=== PATIENT | female | born 1990 | race Caucasian/White ===

== ENCOUNTER 2016-09-20 14:39 | Emergency (ER) | payer OTHER ==
[2016-09-20 15:42] VITALS: BP 112/67
--- NOTE | 2016-09-20 17:15 | RAD ---
INDICATION: Left knee injury. TECHNIQUE: 4 views of the left knee were obtained. FINDINGS: The bones are in normal alignment. No joint effusion or fracture is seen. Joint spaces appear maintained. IMPRESSION: NO EVIDENCE FOR FRACTURE.
--- NOTE | 2016-09-20 18:01 | UC ---
Knee Pain HPI - HPI Summary HPI Summary: Fell on ice, left knee was bent underneath her. [place]anan a pop and cant bear weight on it. mild swelling sub patellar noted - History of Current Complaint Chief Complaint: UCLowerExtremity Stated Complaint: LEFT KNEE PAIN Time Seen by Provider: 09/20/16 16:30 Hx Obtained From: Patient Hx Last Menstrual Period: EXPLANON ?: No Onset/Duration: Sudden Onset, Lasting Hours Severity Initially: Moderate Severity Currently: Moderate Pain Intensity: 8 Pain Scale Used: 0-10 Numeric Character: Dull, Throbbing, Stiffness Aggravating Factor(s): Movement, Weight Bearing, Prolonged Standing, Stairs Alleviating Factor(s): Rest Associated Signs And Symptoms: Positive: Swelling Able to Bear Weight: No - Risk Factors Septic Arthritis Risk Factor: Negative Gout Risk Factor: Negative - Allergies/Home Medications Allergies/Adverse Reactions: Allergies Allergy/AdvReac Type Severity Reaction Status Date / Time Adhesive Tape Allergy Intermediate Blisters Verified 09/20/16 15:42 Cefaclor [From [facility]] Allergy Intermediate hives, Verified 09/20/16 15:42 diarrhea Sulfa Antibiotics Allergy Intermediate Hives Verified 09/20/16 15:42 Tramadol Allergy See Comment Verified 09/20/16 15:42 Home Medications: Home Medications Ibuprofen [Advil] 800 mg PO Q8H PRN 09/20/16 [History Confirmed 09/20/16] Naproxen 500 mg PO BID PRN 09/20/16 [History Confirmed 09/20/16] OXcarbazepine TAB(*) [Trileptal TAB(*)] 150 mg PO SEE INSTRUCTIONS 09/20/16 [ History Confirmed 09/20/16] Omeprazole 40 mg PO BEDTIME 09/20/16 [History Confirmed 09/20/16] PMH/Surg Hx/FS Hx/Imm Hx Previously Healthy: Yes Endocrine History Of: Denies: Diabetes, Thyroid Disease, Hyperthyroidism, Hypothyroidism, Dyslipidemia Cardiovascular History Of: Reports: Cardiac Disorders - "RUNS TACHY"- ANXIETY Denies: Hypertension, Pacemaker/ICD, Myocardial Infarction, Congestive Heart Failure, Atrial Fibrillation, Deep Vein Thrombosis, Bleeding Disorders Respiratory History Of: Reports: Asthma Denies: COPD, Bronchitis, Pneumonia, Pulmonary Embolism GI/ History Of: Reports: Gastroesophageal Reflux, Ulcer Denies: Gastrointestinal Bleed, Gall Bladder Disease, Kidney Stones, Diverticulitis, Renal Disease, Urosepsis Neurological History Of: Denies: TIA, CVA, Dementia, Seizures, Migraine Psychological History Of: Reports: Anxiety Denies: Depression, Bipolar Disorder, Schizophrenia, Post Traumatic Stress Disorder Cancer History Of: Denies: Lung Cancer, Colorectal Cancer, Breast Cancer, Prostate Cancer, Cervical Cancer Other History Of: Negative For: HIV, Hepatitis B, Hepatitis C, Anticoagulant Therapy - Surgical History Surgical History: Yes Surgery Procedure, Year, and Place: APPENDECTOMY , T&A - Family History Known Family History: Positive: Cardiac Disease, Hypertension, Diabetes, Renal Disease, Respiratory Disease - Social History Alcohol Use: Rare Substance Use Type: None Smoking Status (MU): Light Every Day Tobacco Smoker Type: Cigars Amount Used/How Often: 5-6 PER DAY Length of Time of Smoking/Using Tobacco: "OFF AND ON FOR ALMOST 15 YRS." Review of Systems Constitutional: Negative Skin: Negative Eyes: Negative ENT: Negative Respiratory: Negative Cardiovascular: Negative Gastrointestinal: Negative Genitourinary: Negative Motor: Negative Neurovascular: Negative Musculoskeletal: Arthralgia, Decreased ROM, Edema, Myalgia Neurological: Negative Psychological: Negative All Other Systems Reviewed And Are Negative: Yes Physical Exam Triage Information Reviewed: Yes Appearance: Well-Appearing, Well-Nourished, Pain Distress Vital Signs: Initial Vital Signs Temp 97.3 F 09/20/16 15:36 Pulse 96 09/20/16 15:36 Resp 16 09/20/16 15:36 BP 112/67 09/20/16 15:36 Pulse Ox 99 09/20/16 15:36 Vital Signs Reviewed: Yes Eye Exam: Normal Eyes: Positive: Conjunctiva Clear ENT Exam: Normal ENT: Positive: Normal ENT inspection, Pharynx normal, TMs normal Dental Exam: Normal Neck exam: Normal Neck: Positive: Supple, Nontender, No Lymphadenopathy Respiratory Exam: Normal Respiratory: Positive: Chest non-tender, Lungs clear, Normal breath sounds Cardiovascular Exam: Normal Cardiovascular: Positive: RRR, No Murmur, Pulses Normal Abdominal Exam: Normal Abdomen Description: Positive: Nontender, No Organomegaly, Soft Bowel Sounds: Positive: Present Musculoskeletal: Positive: Strength Limited @, ROM Limited @ - left knee, Edema @ - sub patellar Neurological Exam: Normal Neurological: Positive: Alert, Muscle Tone Normal Psychological Exam: Normal Skin Exam: Normal Knee Pain Course/Dx - Course Course Of Treatment: hx obtained, exam performed. medication reviewed, xray neg for fracture, crutches and ambar applied, recommend follow up with Dr wong in the [facility] tomorow if pain persists. - Differential Dx/Diagnosis Differential Diagnosis/HQI/PQRI: Cellulitis, Contusion, Dislocation, Sprain, Strain Provider Diagnoses: knee pain. knee swelling Discharge - Discharge Plan Condition: Stable Disposition: HOME Patient Education Materials: Knee Pain (ED) Referrals: Evelio Gibson MD [Primary Care Provider] - Puma Wong MD [Medical Doctor] - Additional Instructions: Your xray was negative for fracture. i recommend that you follow up with Dr Wong tomorrow at the [facility] othopedics right behind this building.
== END 2016-09-20 18:18 | disposition home or self-care (01) ==
LOC: UCCORT 14:39
DX: S89.92XA Unspecified injury of left lower leg, initial encounter (principal); M25.462 Effusion, left knee; W00.0XXA Fall on same level due to ice and snow, initial encounter; Y93.9 Activity, unspecified; Y92.9 Unspecified place or not applicable; F17.290 Nicotine dependence, other tobacco product, uncomplicated; Z88.5 Allergy status to narcotic agent; Z88.2 Allergy status to sulfonamides
CPT/HCPCS: 99213; G0463

== ENCOUNTER 2016-12-31 14:24 | Emergency (ER) | payer OTHER ==
[2016-12-31 14:57] VITALS: BP 130/81
--- NOTE | 2016-12-31 15:14 | UC ---
Respiratory Complaint HPI - HPI Summary HPI Summary: Patient complaining of increase in respiratory distress associated with her seasonal allergies. She is out of her albuterol as well. hsa been using it frequently. denies fever. C/O SOB, cough, nasal congestion - History of Current Complaint Chief Complaint: UCRespiratory Stated Complaint: COUGH Time Seen by Provider: 12/31/16 15:05 Hx Obtained From: Patient Hx Last Menstrual Period: Nexplanon ?: No Onset/Duration: Sudden Onset, Lasting Days Timing: Constant Severity Initially: Moderate Severity Currently: Moderate Character: Cough: Nonproductive Aggravating Factors: Allergens, Deep Breaths, Recumbent Position Alleviating Factors: Bronchodilator Associated Signs And Symptoms: Positive: Wheezing, URI, Nasal Congestion - Allergies/Home Medications Allergies/Adverse Reactions: Allergies Allergy/AdvReac Type Severity Reaction Status Date / Time Adhesive Tape Allergy Intermediate Blisters Verified 12/31/16 14:44 Cefaclor [From Ceclor] Allergy Intermediate hives, Verified 12/31/16 14:44 diarrhea Sulfa Antibiotics Allergy Intermediate Hives Verified 12/31/16 14:44 Tramadol Allergy See Comment Verified 12/31/16 14:44 PMH/Surg Hx/FS Hx/Imm Hx Previously Healthy: Yes Endocrine History Of: Denies: Diabetes, Thyroid Disease, Hyperthyroidism, Hypothyroidism, Dyslipidemia Cardiovascular History Of: Reports: Cardiac Disorders - "RUNS TACHY"- ANXIETY Denies: Hypertension, Pacemaker/ICD, Myocardial Infarction, Congestive Heart Failure, Atrial Fibrillation, Deep Vein Thrombosis, Bleeding Disorders Respiratory History Of: Reports: Asthma Denies: COPD, Bronchitis, Pneumonia, Pulmonary Embolism GI/ History Of: Reports: Gastroesophageal Reflux, Ulcer Denies: Gastrointestinal Bleed, Gall Bladder Disease, Kidney Stones, Diverticulitis, Renal Disease, Urosepsis Neurological History Of: Denies: TIA, CVA, Dementia, Seizures, Migraine Psychological History Of: Reports: Anxiety Denies: Depression, Bipolar Disorder, Schizophrenia, Post Traumatic Stress Disorder Cancer History Of: Denies: Lung Cancer, Colorectal Cancer, Breast Cancer, Prostate Cancer, Cervical Cancer Other History Of: Negative For: HIV, Hepatitis B, Hepatitis C, Anticoagulant Therapy - Surgical History Surgical History: Yes Surgery Procedure, Year, and Place: APPENDECTOMY , T&A - Family History Known Family History: Positive: Cardiac Disease, Hypertension, Diabetes, Renal Disease, Respiratory Disease - Social History Alcohol Use: Rare Substance Use Type: None Smoking Status (MU): Light Every Day Tobacco Smoker Type: Cigars Amount Used/How Often: 5-6 PER DAY Length of Time of Smoking/Using Tobacco: "OFF AND ON FOR ALMOST 15 YRS." - Immunization History Most Recent Influenza Vaccination: NONE Most Recent Tetanus Shot: UTD Most Recent Pneumonia Vaccination: N/A Review of Systems Constitutional: Negative Skin: Negative Eyes: Negative ENT: Sore Throat, Nasal Discharge Respiratory: Shortness Of Breath, Cough Cardiovascular: Negative Gastrointestinal: Negative Genitourinary: Negative Motor: Negative Neurovascular: Negative Musculoskeletal: Negative Neurological: Negative Psychological: Negative All Other Systems Reviewed And Are Negative: Yes Physical Exam Triage Information Reviewed: Yes Appearance: Well-Nourished, Ill-Appearing, Pain Distress Vital Signs: Initial Vital Signs Temp 98.1 F 12/31/16 14:49 Pulse 99 12/31/16 14:49 Resp 18 12/31/16 14:49 BP 130/81 12/31/16 14:49 Pulse Ox 98 12/31/16 14:49 Vital Signs Reviewed: Yes Eye Exam: Normal Eyes: Positive: Conjunctiva Clear ENT Exam: Normal ENT: Positive: Pharyngeal erythema, TMs normal Dental Exam: Normal Neck exam: Normal Neck: Positive: Supple, Nontender, No Lymphadenopathy Respiratory Exam: Normal Respiratory: Positive: Chest non-tender, Respiratory distress - mild, Wheezing, Inspiration, Other: - cough Cardiovascular Exam: Normal Cardiovascular: Positive: RRR, No Murmur, Pulses Normal Abdominal Exam: Normal Abdomen Description: Positive: Nontender, No Organomegaly, Soft Bowel Sounds: Positive: Present Musculoskeletal Exam: Normal Musculoskeletal: Positive: Strength Intact, ROM Intact, No Edema Neurological Exam: Normal Neurological: Positive: Alert, Muscle Tone Normal Psychological Exam: Normal Skin Exam: Normal UC Diagnostic Evaluation - Laboratory O2 Sat by Pulse Oximetry: 98 Respiratory Course/Dx - Course Course Of Treatment: hx obtained, exam performed, meds reviewed, refill for albuterol, prednisone prescribed for allergic rhinitis - Differential Dx/Diagnosis Differential Diagnosis/HQI/PQRI: Asthma, Bronchitis, Influenza, Laryngitis, Lower Resp Infection, Sinusitis Provider Diagnoses: allergic rhinitis. wheezing Discharge - Discharge Plan Condition: Stable Disposition: HOME Prescriptions: Albuterol HFA INHALER* [Ventolin HFA Inhaler*] 2 puff INH Q4H PRN #1 mdi PRN Reason: Cough predniSONE TAB* [Deltasone TAB*] 40 mg PO DAILY #14 tab Patient Education Materials: Allergic Rhinitis (ED) Additional Instructions: Take the medication as prescribed. Increase your fluid intake and get rest. Follow up with any worsening symtpoms.
== END 2016-12-31 15:30 | disposition home or self-care (01) ==
LOC: UCCORT 14:24
DX: J45.909 Unspecified asthma, uncomplicated (principal); K21.9 Gastro-esophageal reflux disease without esophagitis; F41.9 Anxiety disorder, unspecified; Z88.1 Allergy status to other antibiotic agents; Z88.5 Allergy status to narcotic agent; Z88.2 Allergy status to sulfonamides; F17.210 Nicotine dependence, cigarettes, uncomplicated
CPT/HCPCS: 99212; G0463

== ENCOUNTER 2017-02-04 15:01 | Emergency (ER) | payer OTHER ==
--- NOTE | 2017-02-04 15:33 | UC ---
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 - History Of Current Complaint Stated Complaint: FINGER INJURY Time Seen by Provider: 02/04/17 15:27 Hx Obtained From: Patient Hx Last Menstrual Period: Nexplanon ?: No Onset/Duration: Sudden Onset, Lasting Hours Severity Initially: Severe Severity Currently: Moderate Character Of Pain: Dull, Aching, Stiffness Aggravating Factor(s): Movement Alleviating: Nothing Associated Signs And Symptoms: Positive: Swelling, Bruising - Allergies/Home Medications Allergies/Adverse Reactions: Allergies Allergy/AdvReac Type Severity Reaction Status Date / Time Adhesive Tape Allergy Intermediate Blisters Verified 02/04/17 15:36 Cefaclor [From Ceclor] Allergy Intermediate hives, Verified 02/04/17 15:36 diarrhea Sulfa Antibiotics Allergy Intermediate Hives Verified 02/04/17 15:36 Tramadol Allergy See Comment Verified 02/04/17 15:36 PMH/Surg Hx/FS Hx/Imm Hx Previously Healthy: Yes Other History Of: Negative For: HIV, Hepatitis B, Hepatitis C, Anticoagulant Therapy - Surgical History Surgical History: Yes Surgery Procedure, Year, and Place: APPENDECTOMY , T&A - Family History Known Family History: Positive: Cardiac Disease, Hypertension, Diabetes, Renal Disease, Respiratory Disease - Social History Alcohol Use: Rare Substance Use Type: None Smoking Status (MU): Light Every Day Tobacco Smoker Type: Cigars Amount Used/How Often: 5-6 PER DAY Length of Time of Smoking/Using Tobacco: "OFF AND ON FOR ALMOST 15 YRS." - Immunization History Most Recent Influenza Vaccination: NONE Most Recent Tetanus Shot: UTD Most Recent Pneumonia Vaccination: N/A Review of Systems Constitutional: Negative Skin: Bruising Eyes: Negative ENT: Negative Respiratory: Negative Cardiovascular: Negative Gastrointestinal: Negative Genitourinary: Negative Motor: Negative Musculoskeletal: Arthralgia, Decreased ROM, Edema, Myalgia Neurological: Negative Psychological: Negative All Other Systems Reviewed And Are Negative: Yes Physical Exam Triage Information Reviewed: Yes Appearance: Well-Appearing, Pain Distress, Obese Vital Signs Reviewed: Yes Eye Exam: Normal Eyes: Positive: Conjunctiva Clear ENT: Positive: Hearing grossly normal, Pharynx normal, TMs normal Dental Exam: Normal Neck exam: Normal Neck: Positive: Supple, Nontender, No Lymphadenopathy Respiratory Exam: Normal Respiratory: Positive: Chest non-tender, Lungs clear, Normal breath sounds Cardiovascular Exam: Normal Cardiovascular: Positive: RRR, No Murmur, Pulses Normal Abdominal Exam: Normal Abdomen Description: Positive: Nontender, No Organomegaly, Soft Bowel Sounds: Positive: Present Musculoskeletal Exam: Normal Musculoskeletal: Positive: Strength Intact, ROM Intact, No Edema Neurological Exam: Normal Neurological: Positive: Alert, Muscle Tone Normal Psychological Exam: Normal Skin: Positive: Other - bruising and small cut on the left pinky Hand/Wrist Course/Dx - Course Course Of Treatment: hx obtained, exam performed, meds reviewed, xray obtained neg for fracture. splint applied, - Differential Dx/Diagnosis Differential Diagnosis/HQI/PQRI: Contusion, Fracture, Infection, Sprain, Strain , Tendonitis Provider Diagnoses: finger contusion Discharge - Discharge Plan Condition: Stable Disposition: HOME Patient Education Materials: Tara Hernandez (ED) Additional Instructions: 1. Continue to ice for pain and swelling 2. Use the splint for support for the next few days. 3. ibuprofen for pain and swelling
[2017-02-04 15:57] VITALS: BP 113/70
--- NOTE | 2017-02-04 16:13 | RAD ---
Indication: Left fifth finger injury. 3 views of left fifth finger demonstrates no fracture. No other bone or joint abnormality is noted. IMPRESSION: No fracture of left fifth digit is noted.
== END 2017-02-04 16:34 | disposition home or self-care (01) ==
LOC: UCCORT 15:01
DX: S60.052A Contusion of left little finger without damage to nail, initial encounter (principal); W20.8XXA Other cause of strike by thrown, projected or falling object, initial encounter; Y92.9 Unspecified place or not applicable; Z88.2 Allergy status to sulfonamides; F17.290 Nicotine dependence, other tobacco product, uncomplicated
CPT/HCPCS: 73140; 99213; G0463

== ENCOUNTER 2017-08-25 14:26 | Emergency (ER) | payer OTHER ==
[2017-08-25 16:07] VITALS: BP 127/85
--- NOTE | 2017-08-25 16:15 | ED ---
Headache - HPI Summary HPI Summary: 27 year old female presents with complains of the worse headache of her life. - History Of Current Complaint Chief Complaint: UCGeneralIllness Stated Complaint: HEADACHE X 2 DAYS Time Seen by Provider: 08/25/17 16:15 Hx Obtained From: Patient Hx Last Menstrual Period: Nexplanon Onset/Duration: Sudden Onset Initially Headache Was: "Worst Headache Ever", Initial Pain Scale(0-10)= - 10 Currently Pain Is: Current Pain Scale(0-10)= - 8 Timing: Constant Character: Sharp Location of Headache: Diffuse Aggravating Factor: Bright Lights - Allergies/Home Medications Allergies/Adverse Reactions: Allergies Allergy/AdvReac Type Severity Reaction Status Date / Time Adhesive Tape Allergy Intermediate Blisters Verified 08/25/17 16:07 Cefaclor [From Ceclor] Allergy Intermediate hives, Verified 08/25/17 16:07 diarrhea Sulfa Antibiotics Allergy Intermediate Hives Verified 08/25/17 16:07 Tramadol Allergy See Comment Verified 08/25/17 16:07 Home Medications: Home Medications Calcium W/ Vitamins D & K [Calcium + D] 1 chw PO BID 08/25/17 [History Confirmed 08/25/17] Cyanocobalamin [Vitamin B 12] 500 mcg PO DAILY 08/25/17 [History Confirmed 08/25] Famotidine TAB* [Pepcid 20 MG TAB*] 20 mg PO BID 08/25/17 [History Confirmed ] PMH/Surg Hx/FS Hx/Imm Hx Endocrine/Hematology History: Denies: Hx Anticoagulant Therapy, Hx Diabetes, Hx Thyroid Disease Cardiovascular History: Denies: Hx Congestive Heart Failure, Hx Deep Vein Thrombosis, Hx Hypertension , Hx Myocardial Infarction, Hx Pacemaker/ICD Respiratory History: Reports: Hx Asthma Denies: Hx Chronic Obstructive Pulmonary Disease (COPD), Hx Lung Cancer, Hx Pneumonia, Hx Pulmonary Embolism GI History: Reports: Hx Ulcer Denies: Hx Gall Bladder Disease, Hx Gastrointestinal Bleed, Hx Urosepsis History: Denies: Hx Kidney Stones, Hx Renal Disease Sensory History: Reports: Hx Hearing Aid Neurological History: Denies: Hx Dementia, Hx Migraine, Hx Seizures, Hx Transient Ischemic Attacks (TIA) Psychiatric History: Reports: Hx Anxiety, Hx Panic Disorder - WILL MEDICATE Denies: Hx Depression, Hx Schizophrenia, Hx Bipolar Disorder - Surgical History Surgery Procedure, Year, and Place: APPENDECTOMY , T&A. Gastric surgery 05/2017 Infectious Disease History: No Infectious Disease History: Denies: Hx Clostridium Difficile, Hx Hepatitis, Hx Human Immunodeficiency Virus (HIV), Hx of Known/Suspected MRSA, Hx Shingles, Hx Tuberculosis, Hx Known/ Suspected VRE, Hx Known/Suspected VRSA, History Other Infectious Disease, Traveled Outside the [place] in Last 30 Days - Family History Known Family History: Positive: Cardiac Disease, Hypertension, Diabetes, Renal Disease, Respiratory Disease - Social History Alcohol Use: Rare Substance Use Type: Reports: None Smoking Status (MU): Former Smoker Type: Cigars Amount Used/How Often: 5-6 PER DAY Length of Time of Smoking/Using Tobacco: "OFF AND ON FOR ALMOST 15 YRS." Have You Smoked in the Last Year: Yes Review of Systems Constitutional: Negative Eyes: Negative ENT: Negative Cardiovascular: Negative Respiratory: Negative Gastrointestinal: Negative Genitourinary: Negative Musculoskeletal: Negative Skin: Negative Positive: Headache Psychological: Normal All Other Systems Reviewed And Are Negative: Yes Physical Exam Triage Information Reviewed: Yes Vital Signs On Initial Exam: Initial Vitals Temp Pulse Resp BP Pulse Ox 36.6 C 72 16 127/85 98 08/25/17 16:02 08/25/17 16:02 08/25/17 16:02 08/25/17 16:02 08/25/17 16:02 Vital Signs Reviewed: Yes Appearance: Positive: Well-Appearing Skin: Positive: Warm Head/Face: Positive: Normal Head/Face Inspection Eyes: Positive: Normal ENT: Positive: Normal ENT inspection Neck: Positive: Supple Respiratory/Lung Sounds: Positive: Clear to Auscultation Cardiovascular: Positive: Normal Abdomen Description: Positive: Nontender Bowel Sounds: Positive: Present Musculoskeletal: Positive: Normal Neurological: Positive: Normal Psychiatric: Positive: Normal Diagnostics - Vital Signs Vital Signs Temp Pulse Resp BP Pulse Ox 08/25/17 16:02 36.6 C 72 16 127/85 98 - Laboratory Lab Statement: Any lab studies that have been ordered have been reviewed, and results considered in the medical decision making process. Headache Course/Dx - Diagnoses Provider Diagnoses: Headache Discharge - Discharge Plan Condition: Stable Disposition: OTHER Discharge Disposition Comment: patient suggested to go to the er. Patient Education Materials: Acute Headache (ED) Referrals: Evelio Gibson MD [Primary Care Provider] - Additional Instructions: patient suggested to go to the er for the worse headache of her life
== END 2017-08-25 16:25 ==
LOC: UCCORT 14:26
DX: R51 Headache (principal); Z87.891 Personal history of nicotine dependence
CPT/HCPCS: 99212; G0463

== ENCOUNTER 2017-12-30 14:11 | Emergency (ER) | payer OTHER ==
[2017-12-30 14:37] VITALS: BP 113/68
--- NOTE | 2017-12-30 15:34 | ED ---
Upper Extremity Pain - HPI Summary HPI Summary: 27 yr old with left index finger pain, volar, PIP area. Onset about a week. She denies trauma or injuries to the area. No fever or chills. She has been applying ice. No prior injury. - History of Current Complaint Chief Complaint: DIETERkin Stated Complaint: LEFT INDEX FINGER INJURY Time Seen by Provider: 12/30/17 14:51 Hx Last Menstrual Period: unknown, nexplanon - Allergies/Home Medications Allergies/Adverse Reactions: Allergies Allergy/AdvReac Type Severity Reaction Status Date / Time Adhesive Tape Allergy Intermediate Blisters Verified 08/25/17 16:07 cefaclor [From Ceclor] Allergy Hives Verified 12/30/17 14:31 Sulfa (Sulfonamide Allergy Hives Verified 12/30/17 14:31 Antibiotics) tramadol Allergy Nausea And Verified 12/30/17 14:31 Vomiting PMH/Surg Hx/FS Hx/Imm Hx Endocrine/Hematology History: Denies: Hx Anticoagulant Therapy, Hx Diabetes, Hx Thyroid Disease Cardiovascular History: Denies: Hx Congestive Heart Failure, Hx Deep Vein Thrombosis, Hx Hypertension , Hx Myocardial Infarction, Hx Pacemaker/ICD Respiratory History: Reports: Hx Asthma Denies: Hx Chronic Obstructive Pulmonary Disease (COPD), Hx Lung Cancer, Hx Pneumonia, Hx Pulmonary Embolism GI History: Reports: Hx Ulcer Denies: Hx Gall Bladder Disease, Hx Gastrointestinal Bleed, Hx Urosepsis History: Denies: Hx Kidney Stones, Hx Renal Disease Sensory History: Reports: Hx Hearing Aid Neurological History: Denies: Hx Dementia, Hx Migraine, Hx Seizures, Hx Transient Ischemic Attacks (TIA) Psychiatric History: Reports: Hx Anxiety, Hx Panic Disorder - WILL MEDICATE Denies: Hx Depression, Hx Schizophrenia, Hx Bipolar Disorder - Surgical History Surgery Procedure, Year, and Place: APPENDECTOMY , T&A. Gastric surgery 05/2017 Infectious Disease History: No Infectious Disease History: Denies: Hx Clostridium Difficile, Hx Hepatitis, Hx Human Immunodeficiency Virus (HIV), Hx of Known/Suspected MRSA, Hx Shingles, Hx Tuberculosis, Hx Known/ Suspected VRE, Hx Known/Suspected VRSA, History Other Infectious Disease, Traveled Outside the [place] in Last 30 Days - Family History Known Family History: Positive: Cardiac Disease, Hypertension, Diabetes, Renal Disease, Respiratory Disease - Social History Alcohol Use: None Substance Use Type: Reports: None Smoking Status (MU): Former Smoker Type: Cigars Amount Used/How Often: 5-6 PER DAY Length of Time of Smoking/Using Tobacco: "OFF AND ON FOR ALMOST 15 YRS." Have You Smoked in the Last Year: Yes Review of Systems Constitutional: Negative Positive: Other - left index finger pain All Other Systems Reviewed And Are Negative: Yes Physical Exam Triage Information Reviewed: Yes Vital Signs On Initial Exam: Initial Vitals Temp Pulse Resp BP Pulse Ox 98.1 F 72 16 113/68 99 12/30/17 14:32 12/30/17 14:32 12/30/17 14:32 12/30/17 14:32 12/30/17 14:32 Vital Signs Reviewed: Yes Appearance: Positive: Well-Appearing, No Pain Distress Skin: Positive: Warm, Skin Color Reflects Adequate Perfusion Head/Face: Positive: Normal Head/Face Inspection Eyes: Positive: EOMI ENT: Positive: Normal ENT inspection Respiratory/Lung Sounds: Positive: Other - normal cap refill Cardiovascular: Positive: Pulses are Symmetrical in both Upper and Lower Extremities - radial pulse present Musculoskeletal: Positive: Other - left index finger with small area of hyperpigmentation and increased swelling that is slight. This is over the PIP area. She has no effusion to the left PIP area. No erythema. No obvious cellulitis. Neurological: Positive: Alert, Oriented to Person Place, Time, CN Intact II-III Psychiatric: Positive: Normal - Rubén Coma Scale Best Eye Response: 4 - Spontaneous Best Motor Response: 6 - Obeys Commands Best Verbal Response: 5 - Oriented Coma Scale Total: 15 Diagnostics - Vital Signs Vital Signs Temp Pulse Resp BP Pulse Ox 12/30/17 14:32 98.1 F 72 16 113/68 99 - Laboratory Lab Statement: Any lab studies that have been ordered have been reviewed, and results considered in the medical decision making process. - Radiology left index finger Xray Interpretation: Positive (See Comments) Radiology Interpretation Completed By: Radiologist - Additional Comments Diagnostic Additional Comments: SOft tissue lesion on the volar of the left index finger PIP area. Course/Dx - Course Course Of Treatment: 27 yr old with Soft tissue lesion volar aspect of the left index finger. Plan DC home. FU with Orthopedics for hand to see her for further management. unknown etiology. - Diagnoses Provider Diagnoses: Lesion of soft tissue, Finger pain Discharge - Sign-Out/Discharge Documenting (check all that apply): Discharge/Admit/Transfer - Discharge Plan Condition: Good Disposition: HOME Patient Education Materials: Soft Tissue Foreign Body (ED), Finger Sprain (ED) Referrals: Evelio Gibson MD [Primary Care Provider] - Puma Wong MD [Medical Doctor] - 1 Day Additional Instructions: be sure to call Dr Wong for follow up for your finger as soon as possible - Billing Disposition and Condition Condition: GOOD Disposition: HOME
--- NOTE | 2017-12-30 15:40 | RAD ---
Indication: Painful hard lump palmar aspect at level of proximal interphalangeal joint of the second finger. Comparison: No relevant prior exams available on the [facility] for comparison. Technique: 3 views LEFT second finger. Report: Subtle skin contour convexity along the palmar aspect at the level of the proximal interphalangeal joint with obscuration of the subcutaneous tissue plane. Negative for fracture or malalignment. Preserved joint spaces. IMPRESSION: Suggestion of a soft tissue lesion along the superficial palmar aspect at the level of the proximal interphalangeal joint. Consider targeted ultrasound for further assessment.
== END 2017-12-30 16:31 | disposition home or self-care (01) ==
LOC: UCCORT 14:11
DX: L98.9 Disorder of the skin and subcutaneous tissue, unspecified (principal); M79.645 Pain in left finger(s); Z88.1 Allergy status to other antibiotic agents; Z88.2 Allergy status to sulfonamides; Z88.8 Allergy status to other drugs, medicaments and biological substances; Z87.891 Personal history of nicotine dependence
CPT/HCPCS: 73140; 99211; G0463

== ENCOUNTER 2018-02-23 17:57 | Emergency (ER) | payer OTHER ==
[2018-02-23 18:43] VITALS: BP 121/78
--- NOTE | 2018-02-23 18:51 | UC ---
Skin Complaint HPI - HPI Summary HPI Summary: Pt c/o waking this morning with "small red, tender bump" this morning that is becoming increasingly tender and "red" throughout the day. - History of Current Complaint Hx Obtained From: Patient Hx Last Menstrual Period: unknown, nexplanon ?: No Onset/Duration: Sudden Onset, Lasting Hours Skin Exposure Onset/Duration: Hours Ago Timing: Constant Onset Severity: Mild Current Severity: Mild Pain Intensity: 3 Location: Discrete, Hand (Right) Character: Pain, Redness, Raised Aggravating Factor(s): Touch Alleviating Factor(s): Nothing Associated Signs & Symptoms: Positive: Tenderness Related History: Possible Reaction to: Insect <Leila Grubbs NP - Last Filed: 02/23/18 18:55> <Jonathan Boggs - Last Filed: 02/23/18 20:43> - History of Current Complaint Time Seen by Provider: 02/23/18 18:34 Stated Complaint: RIGHT THUMG TENDERNESS/SWELLING - Allergy/Home Medications Allergies/Adverse Reactions: Allergies Allergy/AdvReac Type Severity Reaction Status Date / Time Adhesive Tape Allergy Intermediate Blisters Verified 02/23/18 18:37 cefaclor [From Ceclor] Allergy Hives Verified 02/23/18 18:37 Sulfa (Sulfonamide Allergy Hives Verified 02/23/18 18:37 Antibiotics) tramadol Allergy Nausea And Verified 02/23/18 18:37 Vomiting Home Medications: Home Medications Amitriptyline TAB* [Elavil TAB*] 20 mg BEDTIME 02/23/18 [History Confirmed 02/23] Review of Systems Constitutional: Negative Skin: Other - erythema Eyes: Negative ENT: Negative Respiratory: Negative Cardiovascular: Negative Gastrointestinal: Negative Genitourinary: Negative Motor: Negative Neurovascular: Negative Musculoskeletal: Negative Neurological: Negative Psychological: Negative Is Patient Immunocompromised?: No All Other Systems Reviewed And Are Negative: Yes <Leila Grubbs NP - Last Filed: 02/23/18 18:55> PMH/Surg Hx/FS Hx/Imm Hx Previously Healthy: Yes Other History Of: Negative For: HIV, Hepatitis B, Hepatitis C, Anticoagulant Therapy - Surgical History Surgical History: Yes Surgery Procedure, Year, and Place: APPENDECTOMY , T&A. Gastric surgery 2016. LEFT KNEE - Family History Known Family History: Positive: Cardiac Disease, Hypertension, Diabetes, Renal Disease, Respiratory Disease - Social History Occupation: Employed Full-time Lives: With Family Alcohol Use: Occasionally Substance Use Type: None Smoking Status (MU): Light Every Day Tobacco Smoker Type: Cigars Amount Used/How Often: 5-6 PER DAY Length of Time of Smoking/Using Tobacco: "OFF AND ON FOR ALMOST 15 YRS." Have You Smoked in the Last Year: Yes Household Exposure Type: Cigarettes - Immunization History Most Recent Influenza Vaccination: NONE Most Recent Tetanus Shot: UTD Most Recent Pneumonia Vaccination: N/A <Leila Grubbs NP - Last Filed: 02/23/18 18:55> Physical Exam Triage Information Reviewed: Yes Appearance: Well-Appearing Vital Signs: Initial Vital Signs Temp 97.5 F 02/23/18 18:40 Pulse 69 02/23/18 18:40 Resp 16 02/23/18 18:40 BP 121/78 02/23/18 18:40 Pulse Ox 100 02/23/18 18:40 Vital Signs Reviewed: Yes Eye Exam: Normal ENT Exam: Normal ENT: Positive: Hearing grossly normal Dental: Positive: Gross Decay/Caries @ Neck exam: Normal Respiratory: Positive: No respiratory distress Musculoskeletal Exam: Normal Musculoskeletal: Positive: Other: - wearing barce on right knee, Neurological Exam: Normal Psychological Exam: Normal Skin Exam: Other - 1 cm diameter erythematous, c/o tenderness with palpation, right lateral, distal, dorsal wrist. <Leila Grubbs NP - Last Filed: 02/23/18 18:55> Vital Signs: Initial Vital Signs Temp 97.5 F 02/23/18 18:40 Pulse 69 02/23/18 18:40 Resp 16 02/23/18 18:40 BP 121/78 02/23/18 18:40 Pulse Ox 100 02/23/18 18:40 <Jonathan Boggs - Last Filed: 02/23/18 20:43> Course/Dx - Differential Diagnoses - Skin Complaint Differential Diagnoses: Cellulitis - Diagnoses Provider Diagnoses: cellulitis right wrist. <Leila Grubbs NP Last Filed: 02/23/18 18:55> Discharge - Sign-Out/Discharge Documenting (check all that apply): Discharge/Admit/Transfer - Billing Disposition and Condition Condition: STABLE Disposition: Home <Romie CARL,Leila Ca - Last Filed: 02/23/18 18:55> - Billing Disposition and Condition Condition: STABLE Disposition: Home <Jonathan Boggs - Last Filed: 02/23/18 20:43> - Discharge Plan Condition: Stable Disposition: HOME Prescriptions: DOXYcycline CAP(*) [DOXYcycline 100MG CAP(*)] 100 mg PO Q12H #10 cap Patient Education Materials: Cellulitis (ED) Referrals: Evelio Gibson MD [Primary Care Provider] - If Needed Additional Instructions: Per institutional requirements, I have reviewed the chart, however, I was not consulted specifically or made aware of this patient by the above midlevel provider. I did not personally evaluate, interact with , or disposition this patient.
== END 2018-02-23 18:58 | disposition home or self-care (01) ==
LOC: UCCORT 17:57
DX: L03.113 Cellulitis of right upper limb (principal); Z88.1 Allergy status to other antibiotic agents; Z88.2 Allergy status to sulfonamides; Z88.8 Allergy status to other drugs, medicaments and biological substances
CPT/HCPCS: 99212; G0463